=== PATIENT | male | born 1970 | race Caucasian/White ===

== ENCOUNTER → 2016-11-22 | Outpatient (CLI) | payer OTHER ==
[~2016-11-22] MED LIST: ATARAX PO; ELIMITE60 GM TOP; IRON325 ( 651 PO; MULTI-VITAMIN1 EAC1 PO
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
--- NOTE | ~2016-11-22 | PFT ---
[id number] [facility] [address] [place], [place] [address] [id number] O MR#: [id number] NAME: MILAD MAGAÑA ROOM: SEX: M STUDY DATE/TIME: : 1970 AGE: 46 STUDY DESCRIPTION: Attending Physician: Vivian Myers A.P.R.N. Referring Physician: Vivian Myers A.P.R.N. Primary Care Physician: [facility] PULMONARY DIAGNOSTIC REPORT EXAM Pulmonary Function Test DESCRIPTION Spirometry is essentially normal with no definite obstructive defect. FEV1 is 2.53 L, 75% of predicted. There is no significant response to bronchodilators. Flow volume loop fairly unremarkable. Lung volumes suggest air trapping. Diffusion capacity is borderline low at 70%. Dictated by... Anirudh Leal/nickie TD: 11/24/2016 07:31 JOB #: [id number] CC: Vivian Myers A.P.R.N. PULMONARY DIAGNOSTIC REPORT Page 1 of 1
== END | disposition home or self-care (01) ==
LOC: CRC 09:25
DX: S82.402D Unspecified fracture of shaft of left fibula, subsequent encounter for closed fracture with routine healing (principal); F17.210 Nicotine dependence, cigarettes, uncomplicated
CPT/HCPCS: 73590; 94060; 94726; 94729